=== PATIENT | male | born 1990 ===

== ENCOUNTER 2025-01-03 15:13 | Outpatient (AMB) | payer MEDICARE, MEDICAID, SELFPAY ==
--- NOTE | 2025-01-03 15:14 | MHC.PC.OV ---
Vital Signs 01/03/25 15:23 Height 6 ft 2 in Weight 217 lb BMI 27.9 BP 127/62 Blood Pressure Location Rt brachial Position Sitting Respiration 16 Pulse 89 Pulse Source Pulse Oximeter Temp 98.1 F Temp Source Oral Pulse Oximetry (%) 98 Oxygen Delivery Method Room Air Intake Visit Reasons: CPE Intake Note: patient here for new patient visit Humanities Teacher Required: No Allergies Penicillins Allergy (Verified 01/03/25 15:30) Swelling Medication List - Last Reconciled 01/03/25 by Tahira Harrell CNP No Known Home Meds Tobacco use date assessed: 01/03/25 Dental Screening Dental Screen Date: 01/03/25 Did you have a dental visit in the last 12 months?: No Did you have a dental problem in the last 6 months where you did not have access to dental care?: No Was dental information given to patient?: Yes HPI HPI Comments History of Present Illness Details 34-year-old male, accompanied by his grandmother, presents to [facility]. Relocated from [place] to [facility] a year ago. Denies anxiety or depressive symptoms. His grandmother notes that he was on psychotropic medications until 8 years ago. Prior PCP? - In [place] Last office visit/CPE/labs - Over 11 years Acute issue(s) - None Past Medical History - Learning disability, Depression Surgical History - Ear tubes placement Family History - Mom: Diabetes, hypertension, hyperlipidemia, thyroid disorder - Dad: Cancer - MGM: Alcohol abuse Social History - Smokes 1.5 pack of cigarettes daily x 5-6 yrs. Does not drink. Vapes cannabis daily - Has been making healthy dietary choices. Active but does not exercise. Reports difficulty falling or staying asleep, does not snore Health maintenance - Last eye exam was 11 years ago. Referred to Ophthalmology for routine eye exam - Last dental visit was over 11 years ago; encouraged to schedule an appointment with his dentist for routine dental care - Last tetanus vaccine was more than 10 years ago; received Tdap vaccine today - Has not been vaccinated for the flu this season; received flu vaccine today Specialists - None PFSH Medical History (Updated 01/03/25 @ 16:09 by Tahira Harrell CNP) Depression Surgical History (Updated 01/03/25 @ 15:35 by Mayelin Reddy MA) History of placement of ear tubes Family History (Updated 01/03/25 @ 15:37 by Mayelin Reddy MA) Maternal Grandmother Alcohol abuse Mother High blood pressure High cholesterol Diabetes Thyroid disorder Sister Diabetes Thyroid disorder Father Cancer Social History (Updated 01/03/25 @ 15:23 by Mayelin Reddy MA) Housing: House Patient Tobacco Use Status: Current everyday Tobacco user Cigarette Packs Per Day: 1.5 Years Smoked: a couple years about 7-8 Packs Per Year: 0 e-Cigarette/Vaping Use: Currently Using Second Hand Smoke Exposure: No Use of substances other than those prescribed or required for medical reasons: Yes Substance Use Type: Marijuana service: No Current occupational status: disabled Current occupational exposures/hazards: No Cognitive needs: No Hearing needs: No Vision needs: Yes Questionnaire PHQ-9 Over the last 2 weeks, how often have you been bothered by any of the following problems? 1. Little interest or pleasure in doing things: several days 2. Feeling down, depressed, or hopeless: not at all 3. Trouble falling or staying asleep, or sleeping too much: more than half the days 4. Feeling tired or having little energy: not at all 5. Poor appetite or overeating: not at all 6. Feeling bad about yourself - or that you are a failure or have let yourself or your family down: not at all 7. Trouble concentrating on things, such as reading the newspaper or watching television: nearly every day 8. Moving or speaking so slowly that other people could have noticed. Or the opposite - being so fidgety or restless that you have been moving around a lot more than usual: not at all 9. Thoughts that you would be better off or of hurting yourself in some way: not at all Total score: 6 Depression Screening Interpretation: Positive Depression Screening Done: Yes 65061 - PHQ-9 Billing: Yes Source: Developed by Drs. Gurpreet Choudhury, Leticia Velazquez, Jason Up and colleagues, with an educational claire from [employer]. Thrive Questionnaire Date Thrive assessed: 01/03/25 I am a: Patient What is your living situation today?: I have a steady place to live Within the past 12 months, did the food you bought not last and you didn't have the money to get more?: Sometimes True Within the past 12 months, did you worry whether your food would run out before you got money to buy more?: Sometimes True Do you have trouble paying for medicines?: Yes Do you have trouble getting transportation to medical appointments?: No Do you have trouble paying your heating and electricity bill?: No Do you have trouble taking care of your child, family member or friend?: No Do you have trouble with day-to-day activities such as bathing, preparing meals, shopping, managing finances, etc.?: Yes Are you currently unemployed and looking for a job?: No Are you interested in more education?: No Please select the resources that you would like help with: Daily support Currently or been in a relationship where the following occur: No concerns reported THRIVE Score: 2 AUDIT C Alcohol Use Questionnaire (AUDIT-C) 1. How often do you have a drink containing alcohol?: Never 3. How often do you have six or more drinks on one occasion?: Never Total Score: 0 Score Reviewed/Action Taken: Yes DARLENE-7 AMB Questionnaire DARLENE-7 Date DARLENE - 7 assessed: 01/03/25 Feeling nervous, anxious, or on edge: 3 = Nearly every day Not being able to stop or control worryin = More than half the days Worrying too much about different things: 0 = Not at all Trouble relaxin = Not at all Being so restless that it is hard to sit still: 0 = Not at all Becoming easily annoyed or irritable: 2 = More than half the days Feeling afraid as if something awful might happen: 0 = Not at all Total DARLENE-7 score (0-4 normal; 5-9 mild; 10-14 moderate; 15-21 severe): 7 Source: Developed by Drs. Gurpreet Choudhury, Leticia Velazquez, Jason Up and colleagues, with an educational claire from [employer]. DARLENE-7 Assessment Billing DARLENE-7 Assessment Tool: DARLENE-7 Assessment 71820 Review of Systems Const Details: Denies chills, Denies fatigue, Denies fever(s), Denies headache(s) and Denies weakness HEENT Denies change in vision, Denies dizziness, Denies headache(s), Denies hearing loss, Denies nasal congestion, Denies sinus pain, Denies sinus pressure and Denies sore throat Card Denies chest pain, Denies lightheadedness, Denies dyspnea and Denies other (palpitations) Resp Denies cough, Denies dyspnea and Denies wheezing GI Denies abdominal pain, Denies melena, Denies hematochezia, Denies change in bowel habits, Denies dyspepsia and Denies nausea Denies hematuria and Denies dysuria Musc Denies abnormal gait, Denies myalgias, Denies arthralgias, Denies numbness and Denies tingling Skin/Breast Denies rash, Denies unusual bruising and Denies wounds Neuro Denies abnormal gait, Denies dizziness, Denies headache(s), Denies memory loss, Denies numbness, Denies Sensory deficit (Neuro), Denies tingling and Denies weakness Psych Denies anxiety, Denies depression and Denies memory loss Endo Denies cold intolerance, Denies fatigue, Denies heat intolerance, Denies polydipsia and Denies polyuria Gurpreet/Lymph Denies easy bleeding and Denies easy bruising Aller/Immun Denies wheezing Physical exam (Primary Care) Vital Signs: Last Vital Signs Temp 98.1 F 01/03/25 15:23 Pulse 89 01/03/25 15:23 Resp 16 01/03/25 15:23 BP 127/62 01/03/25 15:23 Pulse Ox 98 01/03/25 15:23 Oxygen Delivery Method Room Air 01/03/25 15:23 BMI result Body Mass Index 27.9 Tobacco/Smoking Status: Tobacco use Status Tobacco use date assessed 01/03/25 01/03/25 15:23 Patient Tobacco Use Status Current everyday Tobacco 01/03/25 15:23 e-Cigarette/Vaping Use Currently Using 01/03/25 15:23 PHQ-9: PHQ-9 Score PHQ-9: Total score 6 01/03/25 16:14 Depression Screening Interpretation: Positive Thrive Assessment: Date of Thrive Assessment Date Thrive assessed 01/03/25 01/03/25 15:41 Currently or been in a relationship where the following occur: No concerns reported Const Other: General: no acute distress, well developed, alert and awake Nutritional Appearance: well nourished Orientation/consciousness: patient oriented x3 HENMT Head: Yes normocephalic and Yes atraumatic Ears: hearing grossly normal bilaterally and TM's normal bilaterally General nose exam: Normal external nose present and Normal nares present Mouth: Normal oral and palatal mucosa present and moist mucous membranes Teeth and gingiva: Discolored teeth with malodorous breath Throat: Yes oropharynx normal Eyes Pupils: Equal, round and reactive pupils present and Pupil accommodation reflex normal EOM: EOMs intact bilaterally Neck Neck: Yes normal visual inspection, Yes no lymphadenopathy and Yes trachea midline Thyroid: Thyroid normal Carotids: no bruits Lymphatic: no lymphadenopathy noted Chest Chest palpation & inspection: normal inspection of the chest Resp Effort & Inspection: normal respiratory effort Auscultation: clear to auscultation bilaterally Cardio Rate: regular rate Rhythm: regular rhythm Heart sounds: S1 normal heart sound present, S2 normal heart sound present, no gallops, no murmurs and no rubs Bruits: no abdominal aortic bruits and no carotid bruits GI Palpation (GI): No Abdominal aortic bruit present, Soft to palpation, nontender, No hepatosplenomegaly present and No Rebound tenderness present Auscultation: normal bowel sounds General: Yes no CVA tenderness Back/Spine/Pelvis Back: no CVA tenderness Cervical Spine: cervical ROM normal and No Cervical spine tenderness Thoracic/Lumbar Spine: thoraco-lumbar ROM normal, No pain with thoraco-lumbar ROM, No thoracic spinal tenderness and No lumbar spinal tenderness Skin General: warm and dry. Normal skin color. Normal skin turgor Lesions: no lesions Rashes: no rashes Trauma: no lacerations or abrasions Wounds: no wounds Nails: normal Neuro General: patient oriented x3, gait normal and CN's II-XI intact bilaterally Cranial nerves: Yes Equal, round and reactive pupils present Cognition (Neuro): normal cognition Gait exam (Neuro): Normal gait present Motor exam (neuro): 5/5 motor strength present throughout Sensory Exam: No Sensory deficit (Neuro) Deep tendon reflexes (DTR's): Right patellar reflex intensity grade: 2+ and Left patellar reflex intensity grade: 2+ Extrem General: Yes normal to inspection, No edema and No calf tenderness Psych Appearance: grossly normal Affect: normal affect Attitude: cooperative Thought process: Normal thought process present Office Procedures Flu Questionnaire Does the patient have a severe egg allergy?: No Does the patient have severe life threatening allergies?: No Does the patient have a fever or illness today?: No Has the patient ever had Guillain-Adona Syndrome?: No Has the patient ever had any past reaction to a flu shot?: No Immunizations Fluarix [id number] (PF) 45 mcg (15 mcg x 3)/0.5 mL IM syringe Performing Provider: Tahira Harrell CNP Performing Location: [facility] – [place] [facility] Administered by: Liza Bansal RN on 01/03/25 16:14 Dose Route Admin Location Dispensed Lot Number Expiration Date NDC [employer] 0.5 mL IM Right Deltoid 0.5 mL [id number] 10/14/25 01649-541-75 [id number] VIS Given Date VIS Provided VIS Publication Date 01/03/25 Single Vaccine 24 Eligibility Eligibility Date Funding Source Not VFC Eligible 01/03/25 Private Boostrix Tdap 2.5 Lf unit-8 mcg-5 Lf/0.5 mL intramuscular syringe Performing Provider: Tahira Harrell CNP Performing Location: [facility] – [place] [place] Family [facility] Administered by: Liza Bansal RN on 01/03/25 16:16 Dose Route Admin Location Dispensed Lot Number Expiration Date NDC [place] 0.5 mL IM Right Deltoid 0.5 mL [id number] 02/19/27 32574-814-16 [id number] Total Dispensed Waste 0.5 mL 0 % VIS Given Date VIS Provided VIS Publication Date 01/03/25 Single Vaccine 20 Eligibility Eligibility Date Funding Source Not VFC Eligible 01/03/25 Private Coding Level of Care Code New Pt Level 4 (72370) New Pt Prev Care 18-39yr(26549 Diagnoses Normal physical examination, routine Z00.00 Poor dentition K08.9 Eye exam, routine Z01.00 Nicotine dependence F17.200 Engages in vaping Z72.89 Sleep disturbance G47.9 Laboratory tests ordered as part of a complete physical exam (CPE) Z00.00 Additional Codes DARLENE-7 Assessment Billing - ADRLENE-7 Assessment Tool: DARLENE-7 Assessment 74047 ([id number]) PHQ-9 - 55234 - PHQ-9 Billing: Yes ([id number]) Assessment & Plan Assessment & Plan (1) Normal physical examination, routine: Code(s): Z00.00 - Encounter for general adult medical examination without abnormal findings Category: Medical Plan: No significant functional limitation noted. Healthy diet and routine exercise encouraged. Perform lab work and follow-up for telehealth visit for labs review in 2-4 weeks. Return with symptoms or concerns. Verbalized understanding and agreed with the plan. (2) Poor dentition: Code(s): K08.9 - Disorder of teeth and supporting structures, unspecified Category: Medical Plan: Discolored teeth with malodorous breath. Last dental visit was over 11 years ago; encouraged to schedule an appointment with a dentist for routine dental care. List of dental practices provided to patient. Verbalized understanding and agreed with the plan. (3) Eye exam, routine: Code(s): Z01.00 - Encounter for examination of eyes and vision without abnormal findings Category: Medical Plan: Last eye exam was 11 years ago. Referred to Ophthalmology for routine eye exam. (4) Nicotine dependence: Code(s): F17.200 - Nicotine dependence, unspecified, uncomplicated Category: Medical Plan: He smokes 1.5 pack of cigarettes daily x 5-6 yrs. Instructed on the health risks and complications of smoking and cessation encouraged. Declines treatment for smoking cessation. Does not seem motivated to quit smoking at this time. Advised to follow-up as needed. Verbalized understanding and agreed with the plan. (5) Engages in vaping: Code(s): Z72.89 - Other problems related to lifestyle Category: Medical Plan: He vapes cannabis daily. Instructed on the health risks and complications of smoking and cessation encouraged. Encouraged to avoid vaping. He does not seem motivated to quit vaping. (6) Sleep disturbance: Code(s): G47.9 - Sleep disorder, unspecified Category: Medical Plan: Reports difficulty falling or staying asleep. He does not snore. Instructed on sleep hygiene. Routine exercise encouraged. Advised to avoid/stop vaping cannabis. May take melatonin as needed. Follow-up as needed. Verbalized understanding but does not seem motivated to quit. (7) Laboratory tests ordered as part of a complete physical exam (CPE): Code(s): Z00.00 - Encounter for general adult medical examination without abnormal findings Category: Medical Plan: Fasting labs ordered as part of a complete physical exam. Advised to fast for at least 10 hours before getting labs drawn. May drink water Verbalized understanding and agreed with treatment plan. Orders: Orders Complete Blood Count Auto Diff 01/03/25 Z00.00 - Encounter for general adult medical examination without abnormal findings Comprehensive [employer]. Panel Fast 01/03/25 Z00.00 - Encounter for general adult medical examination without abnormal findings Lipid Panel 01/03/25 Z00.00 - Encounter for general adult medical examination without abnormal findings TSH reflex Free T4 01/03/25 Z00.00 - Encounter for general adult medical examination without abnormal findings Vitamin D 25-OH Total 01/03/25 Z00.00 - Encounter for general adult medical examination without abnormal findings Influenza [id number] Immunization 01/03/25 Z23 - Encounter for immunization TDaP Immunization 01/03/25 Z23 - Encounter for immunization Microalbumin, Random (w Creat) 01/03/25 Z00.00 - Encounter for general adult medical examination without abnormal findings UA CC w/rflx Micro + Cult 01/03/25 Z00.00 - Encounter for general adult medical examination without abnormal findings Referrals Ophthalmology Referral Z01.00 - Encounter for examination of eyes and vision without abnormal findings
[2025-01-03 15:23] VITALS: BP 127/62; PULSE 89; RESP 16; TEMP 36.7; O2SAT 98; BMI 27.9
== END 2025-01-03 16:13 | disposition home or self-care (01) ==
PROVIDERS: PCP Nurse Practitioner Family; Visit Provider Nurse Practitioner Family
DX: Z23 Encounter for immunization (principal)

== ENCOUNTER → 2025-01-03 15:13 | Outpatient (BNVA) | payer MEDICARE, MEDICAID, SELFPAY | PROVIDERS: PCP Nurse Practitioner Family; Visit Provider Nurse Practitioner Family | DX: Z00.00 Encounter for general adult medical examination without abnormal findings (principal); K08.9 Disorder of teeth and supporting structures, unspecified; F17.210 Nicotine dependence, cigarettes, uncomplicated; Z23 Encounter for immunization; Z72.89 Other problems related to lifestyle | CPT/HCPCS: 90471; 90472; 90656; 90715; 96127; 99385 ==